=== PATIENT | female | born 1980 | race Caucasian/White ===

== ENCOUNTER → 2018-12-29 14:19 | Emergency (ER) | payer SELFPAY ==
[~2018-12-29 14:19] MED LIST: Ibuprofen TAB* 800 MG PO ONE
[2018-12-29 19:19] VITALS: BP 132/88
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
== END | disposition home or self-care (01) ==
LOC: ED 14:19
DX: S82.831A Other fracture of upper and lower end of right fibula, initial encounter for closed fracture (principal); W16.92XA Jumping or diving into unspecified water causing other injury, initial encounter; Z87.891 Personal history of nicotine dependence
CPT/HCPCS: 99282; A9270-GY

== ENCOUNTER 2019-04-02 18:22 | Emergency (ER) | payer MEDICAID, OTHER ==
--- OUTSIDE RECORDS SUMMARY | 2019-04-02 18:53 | XMS REPORT | Continuity of Care Document ---
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 Began age 17 ETOH Use Drinks 3 Alcoholic Beverages Per Week Recreational Drug Use Denies Drug Use Tobacco Use Start: Unknown Patient is a current smoker, smokes some days Smoking Status Reviewed: 02/12/19 Patient is a current smoker, smokes some days Exercise Type/Frequency Exercises regularly Allergies, Adverse Reactions, Alerts Description No Known Drug Allergies Medications Active Medications SIG Qnty Indications Ordering Provider Date Albuterol Sulfate 2puffs 4 times Unknown (5mg/ML) daily 0.5% Nebulizer Immunizations Description No Information Available Vital Signs Date Vital Result Comment 02/12/2019 10:32am Height 68 inches 5'8" BP Systolic 138 mmHg BP Diastolic 98 mmHg Respiratory Rate 16 /min Body Temperature 98.7 F Pain Level 0 01/29/2019 8:30am Height 68 inches 5'8" Weight 170.00 lb stated Heart Rate 76 /min BP Systolic 110 mmHg BP Diastolic 72 mmHg Respiratory Rate 12 /min Pain Level 0 BMI (Body Mass Index) 25.8 kg/m2 Results Test Date Facility Test Result H/L Range Note Xray 01/02/2019 [facility] Ankles Bilateral <pending> [address] [place] [address] [phone] Ankle Right 3+VWS <pending> Procedures Date Code Description Status 01/29/2019 92118 Short Leg Cast Completed 01/17/2019 83621 Short Leg Cast Completed 01/02/2019 61424 Short Leg Cast Completed Medical Devices Description No Information Available Encounters Type Date Location Provider Dx Diagnosis Office Visit 01/29/2019 [facility]opedic Ravin Chiu [id number] Disp fx of 8:[facility]a [facility] Armas MD lateral malleolus of r fibula, 7thD Office Visit 01/17/2019 Orthopedic Ravin [id number] Disp fx of 9:15a [facility] Armas MD lateral malleolus of r fibula, 7thD Office Visit 01/02/2019 Orthopedic Ravin [id number] Disp fx of 2:45p [facility] Armas MD lateral malleolus of right fibula, init Assessments Date Code Description Provider 02/12/2019 [id number] Displaced fracture of lateral malleolus of Ravin Armas MD right fibula, sub 01/29/2019 [id number] Displaced fracture of lateral malleolus of Ravin Armas MD right fibula, sub 01/17/2019 [id number] Displaced fracture of lateral malleolus of Ravin Armas MD right fibula, sub 01/02/2019 [id number] Displaced fracture of lateral malleolus of Ravin Armas MD right fibula, ini Plan of Treatment Future Appointment(s):03/26/2019 10:15 am - Ravin Armas MD at [facility]02/12/2019 - Ravin Armas [id number] Displaced fracture of lateral malleolus of right fibula, subNew Therapy: Physical TherapyFollow up:Follow up: 6 weeks with xrays Functional Status Description No Information Available Mental Status Description No Information Available Referrals Description No Information Available
--- NOTE | 2019-04-02 22:32 | ED ---
Head Injury - HPI Summary HPI Summary: Pt is a 38 y/o F presenting to the ED with a chief complaint of a headache initially onset on 03/31/19 when she fell and hit her head on concrete. She noticed dizziness, experienced a syncopal episode and woke up with pain on the L side of her head. Since then, she has had a constant headache, fatigue, and feeling foggy. She denies vomiting, change in vision, or weakness. She notes she cant concentrate. - History Of Current Complaint Chief Complaint: EDHeadInjury Stated Complaint: HEAD INJURY PER PT Time Seen by Provider: 04/02/19 21:34 Hx Obtained From: Patient Mechanism Of Injury: Other - syncope Onset/Duration: Started Days Ago, Still Present Onset of Pain: Days Severity Currently: Mild Severity Initially: Mild Pain Intensity: 3 Pain Scale Used: 0-10 Numeric Location of Head Injury: Temporal Character: Aching Associated Signs And Symptoms: LOC Duration Unknown, Headache - Allergies/Home Medications Allergies/Adverse Reactions: Allergies Allergy/AdvReac Type Severity Reaction Status Date / Time No Known Allergies Allergy Verified 12/29/18 16:11 Home Medications: Home Medications NK [No Home Medications Reported] 04/02/19 [History Confirmed 04/02/19] PMH/Surg Hx/FS Hx/Imm Hx Previously Healthy: Yes Endocrine/Hematology History: Denies: Hx Anticoagulant Therapy Cardiovascular History: Denies: Hx Hypertension Respiratory History: Reports: Hx Asthma, Other Respiratory Problems/Disorders - increasing sob this week, has stenosed trachea, r/t recent intubation? History: Denies: Hx Acute Renal Failure, Hx Benign Prostatic Hyperplasia, Hx Chronic Renal Failure, Hx Dialysis, Hx Kidney Infection, Hx Kidney Stones, Other Problems/Disorders Psychiatric History: Reports: Hx Anxiety - INCREASED WITH STEROIDS, Hx Depression, Hx of Violent Episodes Against Others, Other Psychiatric Issues/ Disorders - RECENTLY [facility] Denies: Hx Eating Disorder - Surgical History Surgery Procedure, Year, and Place: BALLOON DILITATION FOR TRACHEAL STENOSIS. - Immunization History Immunizations Up to Date: No Infectious Disease History: No Infectious Disease History: Denies: Hx Clostridium Difficile, Hx Hepatitis, Hx Human Immunodeficiency Virus (HIV), Hx of Known/Suspected MRSA, Hx Shingles, Hx Tuberculosis, Hx Known/ Suspected VRE, Hx Known/Suspected VRSA, History Other Infectious Disease, Traveled Outside the [place] in Last 30 Days - Social History Alcohol Use: Occasionally Alcohol Amount: Pt stated "not a lot" and declined to expand Substance Use Type: Reports: Marijuana Substance Use Comment - Amount & Last Used: HX OF DRUG USE Hx Tobacco Use: Yes Smoking Status (MU): Light Every Day Tobacco Smoker Type: Cigarettes Amount Used/How Often: max 6 daily Have You Smoked in the Last Year: Yes Review of Systems Eyes: Negative Negative: Vomiting Neurological: Other - dizziness Positive: Headache, Syncope. Negative: Weakness All Other Systems Reviewed And Are Negative: Yes Physical Exam - Summary Physical Exam Summary: Constitutional: Well-developed, Well-nourished, Alert. (-) Distressed Skin: Warm, Dry HENT: Normocephalic; Atraumatic Eyes: Conjunctiva normal. L pupil slightly larger than the R. Neck: Musculoskeletal ROM normal neck. (-) JVD, (-) Stridor, (-) Tracheal deviation Cardio: Rhythm regular, rate normal, Heart sounds normal; Intact distal pulses. Radial pulses are 2+ and symmetric. (-) Murmur Pulmonary/Chest wall: Effort normal. (-) Respiratory distress, (-) Wheezes, (-) Rales Abd: Soft. (-) Tenderness, (-) Distension, (-) Guarding, (-) Rebound Musculoskeletal: (-) Edema Lymph: (-) Cervical adenopathy Neuro: Alert, Oriented x3, Strength normal, Cranial nerves II-XII are grossly intact. (-) Dysmetria, (-) Nystagmus, (-) Ataxia by finger to nose testing, (-) Sensory deficit. Psych: Mood and affect Normal Triage Information Reviewed: Yes Vital Signs On Initial Exam: Initial Vitals Temp Pulse Resp BP Pulse Ox 98.1 F 56 18 113/72 97 04/02/19 18:28 04/02/19 18:28 04/02/19 18:28 04/02/19 18:28 04/02/19 18:28 Vital Signs Reviewed: Yes Procedures - Sedation Patient Received Moderate/Deep Sedation with Procedure: No Diagnostics - Vital Signs Vital Signs Temp Pulse Resp BP Pulse Ox 04/02/19 20:57 99 F 63 18 121/65 98 04/02/19 18:28 98.1 F 56 18 113/72 97 - Laboratory Lab Statement: Any lab studies that have been ordered have been reviewed, and results considered in the medical decision making process. Head Injury Course/Dx Course Of Treatment: Patient is here 2 days after having an episode of vasovagal syncope and hitting her head. Patient has had fatigue and nausea since this incident. Patient has no red flag symptoms necessitating CT head. Patient had a normal neurologic exam. Patient is likely suffering from a concussion. Patient was educated on concussion management - Diagnoses Provider Diagnoses: Concussion Discharge ED - Sign-Out/Discharge Documenting (check all that apply): Patient Departure - Discharge Plan Condition: Stable Disposition: HOME Patient Education Materials: Concussion (ED), Head Injury (ED) Referrals: [facility] [Outside] [facility] [Outside] Additional Instructions: Please try to rest as much as possible over the next couple of days, avoiding TV screens, laptops, or phones. Take 600mg Ibuprofen every 6 hours or 1000mg Tylenol every 8 hours as needed for pain. Follow up with your primary care provider within the next 1-3 days. Return to the emergency department with any new or worsening symptoms, such as one-sided weakness or blurred vision. - Billing Disposition and Condition Condition: STABLE Disposition: Home - Attestation Statements Document Initiated by Scribe: Yes Documenting Scribe: Luciana Sarabia Provider For Whom Scribe is Documenting (Include Credential): Ryan Courtney MD. Scribe Attestation: Luciana Vides scribed for Ryan Courtney MD. on 04/03/19 at 0242. Scribe Documentation Reviewed: Yes Provider Attestation: The documentation as recorded by the scribeLuciana accurately reflects the service I personally performed and the decisions made by Ryan owens MD. Status of Scribe Document: Viewed
[2019-04-02 22:39] VITALS: BP 113/59
== END 2019-04-02 22:38 | disposition home or self-care (01) ==
LOC: ED 18:22
DX: S06.0X9A Concussion with loss of consciousness of unspecified duration, initial encounter (principal); W19.XXXA Unspecified fall, initial encounter; Y92.9 Unspecified place or not applicable; F41.9 Anxiety disorder, unspecified; F32.9 Major depressive disorder, single episode, unspecified; F17.210 Nicotine dependence, cigarettes, uncomplicated
CPT/HCPCS: 99282